=== PATIENT | male | born 1975 | race Caucasian/White ===

== ENCOUNTER 2016-05-21 13:35 | Emergency (ER) | payer OTHER ==
--- NOTE | 2016-05-21 14:28 | DIAGNOSTIC IMAGING REPORT ---
PROCEDURE: XR CHEST 2 VIEW INDICATION: CHEST PAIN TECHNIQUE: PA and lateral views. COMPARISON: None. FINDINGS: Infiltrate or atelectasis left lower lobe. There is also elevation of the left hemidiaphragm. Right lung is clear. Heart and mediastinum are normal. Thorax is normal. IMPRESSION: 1. Infiltrate or atelectasis left lower lobe.
--- NOTE | 2016-05-21 14:46 | ED ORDER SUMMARY ---
..... Patient: THAD QUINTANILLA OrderSheet [facility] VisitID: [id number] [address] [place] [address] 41y, M Registration Date/Time: 05/21/2016 ORDER SHEET Weight: 111.1 kg (stated) Allergies: Aspirin GENERAL ORDERS: Chest 2V Urgent (14:05 05/21/2016 HBivens A.R.N.P.) (14:12 EHassan R.N.) CBC w Diff Urgent (14:05 05/21/2016 HBivens A.R.N.P.) (14:12 EHassan R.N.) CMP Urgent (14:05 05/21/2016 HBivens A.R.N.P.) (14:12 EHassan R.N.) CPK Urgent (14:05 05/21/2016 HBivens A.R.N.P.) (14:12 EHassan R.N.) Troponin-I Urgent (14:05 05/21/2016 HBivens A.R.N.P.) (14:12 EHassan R.N.) MEDICATION ORDERS: IV FLUIDS: IV Saline Lock (14:05 05/21/2016 HBivens A.R.N.P.) (14:12 EHassan R.N.) Ceftriaxone IV 1 gm/50mL (NOW) (14:45 05/21/2016 HBivens A.R.N.P.) (15:00 EHassan R.N.) ORDER SHEET NOTES: [Electronically signed by Analilia Mathur R.N. (15:53 05/21/2016)] [Electronically signed by Miranda WilcoxR.N.P. (17:30 05/21/2016)] [Electronically locked/signed by Analilia Mathur R.N. (15:53 05/21/2016)]
--- NOTE | 2016-05-21 14:46 | ED ORDER SUMMARY ---
..... Patient: THAD QUINTANILLA OrderSheet [facility] VisitID: [id number] [address] [place] [address] 41y, M Registration Date/Time: 05/21/2016 ORDER SHEET Weight: 111.1 kg (stated) Allergies: Aspirin GENERAL ORDERS: Chest 2V Urgent (14:05 05/21/2016 HBivens A.R.N.P.) (14:12 EHassan R.N.) CBC w Diff Urgent (14:05 05/21/2016 HBivens A.R.N.P.) (14:12 EHassan R.N.) CMP Urgent (14:05 05/21/2016 HBivens A.R.N.P.) (14:12 EHassan R.N.) CPK Urgent (14:05 05/21/2016 HBivens A.R.N.P.) (14:12 EHassan R.N.) Troponin-I Urgent (14:05 05/21/2016 HBivens A.R.N.P.) (14:12 EHassan R.N.) MEDICATION ORDERS: IV FLUIDS: IV Saline Lock (14:05 05/21/2016 HBivens A.R.N.P.) (14:12 EHassan R.N.) Ceftriaxone IV 1 gm/50mL (NOW) (14:45 05/21/2016 HBivens A.R.N.P.) (15:00 EHassan R.N.) ORDER SHEET NOTES: [Electronically signed by Analilia Mathur R.N. (15:53 05/21/2016)] [Electronically signed by Miranda WilcoxR.N.P. (17:30 05/21/2016)] [Electronically locked/signed by Analilia Mathur R.N. (15:53 05/21/2016)]
--- NOTE | 2016-05-21 14:46 | ED NURSING NOTES ---
Clinical Report - Nurses [facility] [address] [place] [address] 05/21/2016 13:38 Patient: THAD QUINTANILLA TRIAGE Triage time 1342 PM. Acuity: LEVEL 3. Chief Complaint: CHEST PAIN and DISCOMFORT and RIGHT ARM PAIN, SHORTNESS OF BREATH and DIFFICULTY BREATHING. Alert. No acute distress. SEPSIS SCREEN: Sepsis Screen. Negative (no infection suspected/documented). HE COMA SCORE: [place] Coma Scale: 15- eyes open spontaneously (4); best verbal response- oriented x 4 (5); best motor response- obeys commands (6). --13:53 Analilia Mathur R.N. 13:41 05/21/16. BP: 144/111. HR: 85. RR: 16 (regular and unlabored). O2 saturation: 100%. Temp: 97.6 F. Pain level now: 0/10. --13:53 Analilia Mathur R.N. Weight: 111.1 kg stated. Height/Length: 71 inches Per Patient. BMI: 34.2. --13:43 Analilia Mathur R.N. Medications Lisinopril Oral 10 mg, , has not taken in a month. --13:46 Analilia Mathur R.N. Allergies Aspirin.(swelling) --13:46 Analilia Mathur R.N. Medication/allergy information source: the patient. --13:53 Analilia Mathur R.N. History Arrived by private vehicle. Historian: patient. Accompanied by family and friend. ( Pt states that as of last Thursday, pt started having chest as of last Sebastian accompanied with right arm pain that travels to lower arm as well, when experiencing CP, pt has SOB/tightness/nauseous/sweating. Last episode was last night. Here brought with correctional case manager to get evaluated). The patient has had difficulty breathing. No nausea, vomiting, fever or cough. Treatment COIL WINDER STRAP: Took Tylenol. (last night). PAST MEDICAL HX: Immunizations: up-to-date. SOCIAL HX: Light tobacco smoker (cigarette)- less than 1/2 a pack per day. Alcohol use. Patient is a recovering alcoholic. History of drug use. Is a recovering addict. (35 days). No infectious disease exposure. ABUSE ASSESSMENT: No report of abuse. SELF HARM ASSESSMENT: A self harm assessment was performed. The patient answered "no" to the question "Do you have thoughts of harming or killing yourself?" and "Have you recently had thoughts about harming or killing others?". FALL RISK ASSESSMENT: Fall risk assessment completed. No fall risk identified. NUTRITIONAL RISK ASSESSMENT: The nutritional risk assessment revealed no deficiencies. FUNCTIONAL ASSESSMENT: Functional assessment: no impairments noted. LEARNING NEEDS ASSESSMENT: The learning needs assessment revealed no barriers. SKIN INTEGRITY ASSESSMENT: Skin integrity risk assessment completed. No skin integrity risk identified. --13:53 Analilia Mathur R.N. PROBLEMS: Hypertension. Depression. Back Pain. --13:46 Analilia Mathur R.N. ADDITIONAL SURGERIES: Collar bone. --13:46 Analilia Mathur R.N. Interventions ID band on patient. --13:53 Analilia Mathur R.N. PHYSICAL ASSESSMENT Ambulatory to room. GENERAL / NEURO / PSYCH: Alert. Oriented X 4. Appears in no acute distress. HEENT: Mucous membranes are pink. RESPIRATORY: Respirations not labored. Breath sounds within normal limits. CVS: Normal sinus rhythm noted. Heart sounds within normal limits. Pulses within normal limits. Capillary refill less than 2 seconds. GI / : Abdomen soft and nontender. EXTREMITIES: No lower extremity edema. SKIN: Skin is warm and dry. Normal skin turgor. --13:55 Analilia Mathur R.N. NURSING PROGRESS NOTES 13:46 05/21/2016 Site #1 started via IV in the right antecubital space with an 20g angiocath; one attempt. Blood drawn: rainbow set. Labeled in the presence of the patient and sent to the lab. Saline lock flushed. --13:56 Analilia Mathur R.N. 13:55 05/21/16. BP: 121/88. HR: 77. RR: 15 (regular and unlabored). O2 saturation: 98% on room air. Pain level now: 10/13. --13:58 Analilia Mathur R.N. Cardiac rhythm: normal sinus rhythm. The initial plan of care for this patient has been created This plan of care was discussed with the patient. splunk consultant, pulse oximeter and NIBP monitor placed on patient. EKG time: (1354 PM). EKG was performed by a tech and shown to the ED physician. Patient ID band checked for patient name, birthdate and medical record number: patient confirmed. Blood samples drawn by nurse per protocol ; labeled in presence of the patient: rainbow set. Patient gowned. Warming measures: blanket applied. Reassurance given. ( Pt states now feeling pain initiating on the right side of neck and radiates down to right arm/ no CP). CVS: The patient reports chest pain. Two patient identifiers checked. Side rails up x 1. Bed placed in lowest position. Brakes of bed on. FALL RISK ASSESSMENT: Fall risk assessment completed. No fall risk identified. --13:58 Analilia Mathur R.N. Cardiac rhythm: normal sinus rhythm. --14:58 Analilia Mathur R.N. 14:30 05/21/16. BP: 121/78. HR: 74. RR: 16. O2 saturation: 100%. Pain level now: 08/13. --14:58 Analilia Mathur R.N. 15:00 05/21/2016 Started 1 gm of Ceftriaxone IVPB in bag #1 50 mL; at 150 mL/hr over 30 minute(s) via site #1 via IV pump. Allergies verified and confirmed 5 rights. IV patency established. IV site checked: no pain, redness, or swelling. IV flushed thoroughly pre- and post-medication administration. --15:00 Analilia Mathur R.N. 14:45 05/21/16. BP: 115/84. HR: 77. RR: 14. O2 saturation: 100%. Pain level now: 07/14. --15:02 Analilia Mathur R.N. Cardiac rhythm: normal sinus rhythm. Reassurance given. The patient is calm. Overall patient status is the same- he states feels better. HEENT: Denies headache. RESPIRATORY: Denies difficulty breathing. CVS: Denies chest pain. GI / : Denies nausea. Two patient identifiers checked. Call light placed in reach. Side rails up x 1. Bed placed in lowest position. Brakes of bed on. --15:02 Analilia Mathur R.N. 15:35 05/21/2016 Ceftriaxone IVPB Response: no adverse reaction. --15:51 Analilia Mathur R.N. 15:36 05/21/2016 Ceftriaxone IVPB Discontinued: bag #1 infused upon discharge. Total amount infused: 50 mL. IV patency established. IV site checked: no pain, redness, or swelling. IV flushed thoroughly. --15:51 Analilia Mathur R.N. DISPOSITION / DISCHARGE 15:40 05/21/2016 Site #1 removed upon discharge. Catheter intact. Manual pressure applied. --15:50 Analilia Mathur R.N. Departure time: 1550 PM. Condition at departure: improved and stable. The goals identified in the patient's plan of care were met. No learning barriers present. Discharge instructions provided and reviewed with the patient. Reviewed medication(s) side effects, precautions, dosing and course information. Prescription(s) given to the patient. Activity restrictions reviewed. Patient verbalized understanding. Written instructions provided in Danish. No diet instructions. The patient was discharged by the nurse practitioner. He was discharged home and unaccompanied at time of discharge. He left the Emergency Department ambulatory and via bus and with fare provided. Driving (bus). --15:53 Analilia Mathur R.N. 15:41 05/21/16. BP: 134/91 (regular adult cuff) taken on the left arm, via an automated monitor, while sitting. HR: 69. RR: 15. O2 saturation: 98% on room air. Temp: 97.8 F (oral). Pain level now: 07/14. --15:53 Analilia Mathur R.N. Locked/Released at 05/21/2016 15:53 by Analilia Mathur R.N.
--- NOTE | 2016-05-21 14:46 | ED CLINICAL REPORT ---
Clinical Report - Physicians/Mid Levels [facility] [address] [place] [address] 05/21/2016 13:38 Patient: THAD QUINTANILLA Time Seen: 13:59; initial patient contact, initial documentation, patient care assumed. Arrived- By private vehicle. Historian- patient. HISTORY OF PRESENT ILLNESS Chief Complaint: CHEST PAIN and DISCOMFORT. At its maximum, severity described as severe. When seen in the E.D., it was gone. Modifying factors. Not worsened by anything. Not relieved by anything. It is described as tightness and it is described as located in the right chest area and radiating to the neck and to the right arm and right shoulder. This started about 6 days ago and is now gone. It was abrupt in onset and has been intermittent. The patient has had difficulty breathing and nausea and has experienced diaphoresis. No vomiting. (when cp comes on, it gets hard to breathe and sweating). Similar symptoms previously: Frequently, as bad. ( says he suffers from anxiety and has cp with it, but his heart has never been checked out). Recent medical care: The patient was seen recently in the office. ( was at office seeing his counselor and when he mentioned he was having cp with his anxiety, he was told to come to er). REVIEW OF SYSTEMS No fever or abdominal pain. He has had a cough. All systems otherwise negative, except as recorded above. PAST HISTORY See nurses notes. PROBLEMS: Hypertension. Depression. Back Pain. --13:46 Analilia Mathur R.N. ADDITIONAL SURGERIES: Collar bone. --13:46 Analilia Mathur R.N. Alcoholism. Substance abuse. SOCIAL HISTORY Light tobacco smoker. Alcohol use. Patient is a longstanding and recovering alcoholic. History of heavy drug use. Is a recovering addict. No recent travel. Is a local resident. FAMILY HISTORY History of heart disease in first-degree relative (mother and father). ADDITIONAL NOTES The nursing notes have been reviewed with agreement regarding the chief complaint, HPI, ROS, PMH and patient medications and allergies. PHYSICAL EXAM Vital Signs: 05/21/2016 13:41 BP: 144/111. HR: 85. RR: 16. O2 saturation: 100%. Temp: 97.6 F. Pain level now: 0/10. Have been reviewed as normal and appear to be correct. Appearance: Alert. Oriented X3. No acute distress. Eyes: Pupils equal, round and reactive to light. Eyes normal inspection. Neck: Normal inspection. Neck supple. CVS: Normal heart rate and rhythm. Heart sounds normal. Pulses normal. Respiratory: No respiratory distress. Breath sounds normal. Chest nontender. Back: Normal external inspection. Skin: Skin warm and dry. Normal skin color. No rash. Normal skin turgor. Extremities: Extremities exhibit normal ROM. No lower extremity edema. Neuro: Oriented X 3. No motor deficit. No sensory deficit. LABS, X-RAYS, AND EKG EKG: EKG time: (1354). No acute process. No acute ischemia. Normal EKG. Rate: 75. Normal EKG. The study has been interpreted contemporaneously by me (and dr bey). The EKG appears to be a good tracing. Interpretation time: 1359. Chest X-ray: Normal Chest X-Ray. (IMPRESSION: 1. Infiltrate or atelectasis left lower lobe. Electronically Final signed by:Micheal Ignacio MD 05/21/2016 2:32:05 PM). The X-rays were interpreted by the radiologist and contemporaneously by me. Interpretation time: 14:43. Laboratory Tests: CBC w Diff: (ARIELLE: 05/21/2016 13:50) ( MsgRcvd 05/21/2016 14:25) Final results Test Result Flag Units (Reference) WHITE BLOOD COUNT 7.5 K/uL (4.5-11.5) RED BLOOD COUNT 4.80 M/uL (4.50-5.90) HEMOGLOBIN 14.3 gm/dL (13.5-17.5) HEMATOCRIT 42.0 % (41.0-53.0) MEAN CELL VOLUME 88 fL (80-100) MEAN CORPUSCULAR HGB 30 pg (26-34) MEAN CORPUSCULAR HGB CONC 34 g/dL (31-37) RED CELL DISTRIBUTION WIDTH 13.6 % (11.6-14.8) PLATELET COUNT 202 K/uL (150-400) NEUTROPHIL % 61.0 % (50-75) LYMPH % 28.4 % (25-40) MONO % 3.6 % (3-14) EOSINOPHIL % 6.2 H % (0-4) BASOPHIL % 0.8 % (0-2) CMP: (ARIELLE: 05/21/2016 13:50) ( MsgRcvd 05/21/2016 14:35) Final results Test Result Flag Units (Reference) GLUCOSE 175 H mg/dL (70-110) BUN 8 mg/dL (7-18) CREATININE 1.0 mg/dL (0.6-1.3) Estimated GFR >60 mL/min Estimated GFR- >60 mL/min Note: Persistent reduction over 3 months in eGFR<60 mL/min/1.73 m2 defines CKD. Patients with eGFR values>=60 mL/min/1.73 m2 may also have CKD if evidence ofpersistent proteinuria. Additional information may be foundat www.kidney.org. SODIUM 142 mmol/L (136-145) POTASSIUM 3.8 mmol/L (3.5-5.1) CHLORIDE 105 mmol/L (98-107) CARBON DIOXIDE 30 mmol/L (21-32) CALCIUM 9.0 mg/dL (8.5-10.1) TOTAL PROTEIN 7.1 g/dL (6.4-8.2) ALBUMIN 3.7 g/dL (3.3-5.0) BILIRUBIN, TOTAL 0.3 mg/dL (0.0-1.0) ALKALINE PHOSPHATASE 95 U/L (46-116) AST (SGOT) 26 U/L (15-37) ALT (SGPT) 42 U/L (12-78) CPK 148 U/L (24-260) TROPONIN I <0.05 ng/mL (0.00-1.5) TROPONIN REFERENCE RANGE:<0.1 NEGATIVE0.1-1.5 INDETERMINANT>1.5 POSITIVE . PROGRESS AND PROCEDURES Patient counseled in person regarding the patient's stable condition, test results and diagnosis. 14:43. Differential Diagnosis: I considered muscle strain, costochondritis, pleurisy, myocardial infarction, intermediate coronary syndrome, unstable angina, angina, aortic dissection, mitral valve prolapse, pericarditis, pulmonary embolism, pneumonia, pneumothorax, gastroesophageal reflux disease, esophagitis and esophageal spasm as a possible cause of chest pain in this patient. This is a partial list of diagnoses considered. Disposition: Discharged home in good and improved condition (14:46). Condition: good and stable. CLINICAL IMPRESSION Bronchopneumonia. Vital signs recorded and reviewed; empiric antibiotics given in the ED and prescribed. No hypoxemia, respiratory failure or sepsis. INSTRUCTIONS Warnings: GENERAL WARNINGS: Return or contact your physician immediately if your condition worsens or changes unexpectedly, if not improving as expected, or if other problems arise. SPECIFICALLY, return if you develop chest, neck, jaw, shoulder, arm, or back pain, difficulty breathing, a fluttering sensation in your chest, lightheadedness, fainting, excessive fatigue, or sudden sweating. Prescription Medications: Naproxen 500 mg tablets: take 1 orally every 12 hours as needed for pain. Dispense twenty (20). No refills. Zithromax 250 mg tablets: take 2 orally today, followed by 1 daily for the next 4 days. No refills. Substitution is permissible. Follow-up: Follow up with your doctor in about three days as needed. Call for an appointment. Summary of care provided to patient. Understanding of the discharge instructions verbalized by patient. (Electronically signed by Miranda Wilcox A.R.N.P. 05/21/2016 17:30)
--- NOTE | 2016-05-21 17:30 | ED DISCHARGE INSTRUCTIONS ---
Patient: THAD QUINTANILLA General Instructions [facility] VisitID: [id number] [place] [address] 41y, M Registration Date/Time: 05/21/2016 Bronchopneumonia. Vital signs recorded and reviewed; empiric antibiotics given in the ED and prescribed. No hypoxemia, respiratory failure or sepsis. INSTRUCTIONS Warnings: GENERAL WARNINGS: Return or contact your physician immediately if your condition worsens or changes unexpectedly, if not improving as expected, or if other problems arise. SPECIFICALLY, return if you develop chest, neck, jaw, shoulder, arm, or back pain, difficulty breathing, a fluttering sensation in your chest, lightheadedness, fainting, excessive fatigue, or sudden sweating. Prescription Medications: Naproxen 500 mg tablets: take 1 orally every 12 hours as needed for pain. Dispense twenty (20). No refills. Zithromax 250 mg tablets: take 2 orally today, followed by 1 daily for the next 4 days. No refills. Substitution is permissible. Follow-up: Follow up with your doctor in about three days as needed. Call for an appointment. Summary of care provided to patient. Understanding of the discharge instructions verbalized by patient. ADDITIONAL INFORMATION Pneumonia (Adult) Pneumonia is an infection deep within the lung, in the small air sacs (alveoli). It may be due to a virus or bacteria and is usually treated with an antibiotic. Severe cases require treatment in the hospital. Milder cases can be treated at home. Symptoms usually start to improve during the first2 days of treatment. Home Care: Rest at home for the first 23 days or until you feel stronger. When resuming activity, dont let yourself become overly tired. Avoid exposure to cigarette smoke (yours or others). You may use acetaminophen (Tylenol) or ibuprofen (Motrin, Advil) to control fever or pain, unless another medicine was prescribed. [NOTE: If you have chronic liver or kidney disease or ever had a stomach ulcer or GI bleeding, talk with your doctor before using these medicines.] (Aspirin should never be used in anyone under 18 years of age who is ill with a fever. It may cause severe liver damage.) Your appetite may be poor so a light diet is fine. Keep well hydrated by drinking 68 glasses of fluids per day (water, sport drinks such as Gatorade, sodas without caffeine, juices, tea, soup, etc.). This will help loosen secretions in the lung, making it easier for you to cough up the phlegm (sputum). If you also have heart or kidney disease, check with your doctor before you drink extra amounts of fluids. Finish all antibiotic medicine prescribed, even if you are feeling better after a few days. Follow Up with your doctor in the next 23 days (or as advised) to be sure you are responding properly to the medicine. [NOTE: If you are age 65 or older, or if you have chronic lung disease (asthma, emphysema or COPD), we recommendthe pneumococcal vaccination and a yearlyinfluenzavaccination(flu-shot) every . Ask your doctor about this.] Get Prompt Medical Attention if any of the following occur: Not getting better within the first 48 hours of treatment Increasing shortness of breath or rapid breathing (over 25 breaths/minute) Coughing up blood or increasing chest pain with breathing Fever of 100.4F (38C) oral or higher, not better with fever medication Increasing weakness, dizziness or fainting Increasing thirst or dry mouth Sinus pain, headache or a stiff neck Chest pain not caused by coughing Naproxen Sodium Oral tablet What is this medicine? NAPROXEN (na PROX en) is a non-steroidal anti-inflammatory drug (NSAID). It is used to reduce swelling and to treat pain. This medicine may be used for dental pain, headache, or painful monthly periods. It is also used for painful joint and muscular problems such as arthritis, tendinitis, bursitis, and gout. How should I use this medicine? Take this medicine by mouth with a glass of water. Follow the directions on the prescription label. Take it with food if your stomach gets upset. Try to not lie down for at least 10 minutes after you take it. Take your medicine at regular intervals. Do not take your medicine more often than directed. Long-term, continuous use may increase the risk of heart attack or stroke. A special MedGuide will be given to you by the pharmacist with each prescription and refill. Be sure to read this information carefully each time. Talk to your hand filer balance wheel regarding the use of this medicine in children. Special care may be needed. What side effects may I notice from receiving this medicine? Side effects that you should report to your doctor or health professional healthcare representative as soon as possible: black or bloody stools, blood in the urine or vomit blurred vision chest pain difficulty breathing or wheezing nausea or vomiting severe stomach pain skin rash, skin redness, blistering or peeling skin, hives, or itching slurred speech or weakness on one side of the body swelling of eyelids, throat, lips unexplained weight gain or swelling unusually weak or tired yellowing of eyes or skin Side effects that usually do not require medical attention (report to your doctor or health professional healthcare representative if they continue or are bothersome): constipation headache heartburn What may interact with this medicine? alcohol aspirin cidofovir diuretics lithium methotrexate other drugs for inflammation like ketorolac or prednisone pemetrexed probenecid warfarin What if I miss a dose? If you miss a dose, take it as soon as you can. If it is almost time for your next dose, take only that dose. Do not take double or extra doses. Where should I keep my medicine? Keep out of the reach of children. Store at room temperature between 15 and 30 degrees C (59 and 86 degrees F). Keep container tightly closed. Throw away any unused medicine after the expiration date. What should I tell my health care provider before I take this medicine? They need to know if you have any of these conditions: asthma cigarette smoker drink more than 3 alcohol containing drinks a day heart disease or circulation problems such as heart failure or leg edema (fluid retention) high blood pressure kidney disease liver disease stomach bleeding or ulcers an unusual or allergic reaction to naproxen, aspirin, other NSAIDs, other medicines, foods, dyes, or preservatives or trying to get breast-feeding What should I watch for while using this medicine? Tell your doctor or health professional healthcare representative if your pain does not get better. Talk to your doctor before taking another medicine for pain. Do not treat yourself. This medicine does not prevent heart attack or stroke. In fact, this medicine may increase the chance of a heart attack or stroke. The chance may increase with longer use of this medicine and in people who have heart disease. If you take aspirin to prevent heart attack or stroke, talk with your doctor or health professional healthcare representative. Do not take other medicines that contain aspirin, ibuprofen, or naproxen with this medicine. Side effects such as stomach upset, nausea, or ulcers may be more likely to occur. Many medicines available without a prescription should not be taken with this medicine. This medicine can cause ulcers and bleeding in the stomach and intestines at any time during treatment. Do not smoke cigarettes or drink alcohol. These increase irritation to your stomach and can make it more susceptible to damage from this medicine. Ulcers and bleeding can happen without warning symptoms and can cause . You may get drowsy or dizzy. Do not drive, use machinery, or do anything that needs mental alertness until you know how this medicine affects you. Do not stand or sit up quickly, especially if you are an older patient. This reduces the risk of dizzy or fainting spells. This medicine can cause you to bleed more easily. Try to avoid damage to your teeth and gums when you brush or floss your teeth. Azithromycin Oral tablet What is this medicine? AZITHROMYCIN (az ith wendi PHIE sin) is a macrolide antibiotic. It is used to treat or prevent certain kinds of bacterial infections. It will not work for colds, flu, or other viral infections. How should I use this medicine? Take this medicine by mouth with a full glass of water. Follow the directions on the prescription label. The tablets can be taken with food or on an empty stomach. If the medicine upsets your stomach, take it with food. Take your medicine at regular intervals. Do not take your medicine more often than directed. Take all of your medicine as directed even if you think your are better. Do not skip doses or stop your medicine early. Talk to your hand filer balance wheel regarding the use of this medicine in children. Special care may be needed. What side effects may I notice from receiving this medicine? Side effects that you should report to your doctor or health professional healthcare representative as soon as possible: allergic reactions like skin rash, itching or hives, swelling of the face, lips, or tongue confusion, nightmares or hallucinations dark urine difficulty breathing hearing loss irregular heartbeat or chest pain pain or difficulty passing urine redness, blistering, peeling or loosening of the skin, including inside the mouth white patches or sores in the mouth yellowing of the eyes or skin Side effects that usually do not require medical attention (report to your doctor or health professional healthcare representative if they continue or are bothersome): diarrhea dizziness, drowsiness headache stomach upset or vomiting tooth discoloration vaginal irritation What may interact with this medicine? Do not take this medicine with any of the following medications: lincomycin This medicine may also interact with the following medications: amiodarone antacids cyclosporine digoxin magnesium nelfinavir phenytoin warfarin What if I miss a dose? If you miss a dose, take it as soon as you can. If it is almost time for your next dose, take only that dose. Do not take double or extra doses. Where should I keep my medicine? Keep out of the reach of children. Store at room temperature between 15 and 30 degrees C (59 and 86 degrees F). Throw away any unused medicine after the expiration date. What should I tell my health care provider before I take this medicine? They need to know if you have any of these conditions: kidney disease liver disease irregular heartbeat or heart disease an unusual or allergic reaction to azithromycin, erythromycin, other macrolide antibiotics, foods, dyes, or preservatives or trying to get breast-feeding What should I watch for while using this medicine? Tell your doctor or health professional healthcare representative if your symptoms do not improve. Do not treat diarrhea with over the counter products. Contact your doctor if you have diarrhea that lasts more than 2 days or if it is severe and watery. This medicine can make you more sensitive to the sun. Keep out of the sun. If you cannot avoid being in the sun, wear protective clothing and use sunscreen. Do not use sun lamps or tanning beds/booths. You have been given the following additional information: Pneumonia (Adult) Naproxen Sodium Oral tablet Azithromycin Oral tablet (Electronically signed by Miranda Wilcox A.R.N.P. 05/21/2016 17:30)
--- NOTE | 2016-05-21 17:31 | ED MAR SUMMARY ---
..... Medication Administration Record Merged With [facility] [address] [place] [address] Patient: THAD QUINTANILLA Visit ID: [id number] 41y, M Weight: 111.1 kg Height/Length: 71 in BMI: 34.2 ALLERGIES: Aspirin Start 15:00 05/21/2016 Analilia Mathur RAlbaroNAlbaro, Stop 15:36 05/21/2016 Analilia Mathur R.N. Medication Administered: CEFTRIAXONE [IVPB], Dose: 1 gm IVPB over 30 minute(s), Rate: 150 mL/hr, Dispensed: 50 mL bag, Site: #1 right AC. Medication Ordered: Ceftriaxone IV 1 gm/50mL (NOW).
--- NOTE | 2016-05-21 17:31 | ED MED RECONCILIATION SUMMARY ---
Patient: THAD QUINTANILLA Medication Reconciliation Report [facility] VisitID: [id number] [address] [place] [address] 41y, M Registration Date/Time: 05/21/2016 Weight: 111.1 kg Height/Length: 71 in. BMI: 34.2 ALLERGIES: Aspirin The patient's Home Medications are listed below: THE FOLLOWING MEDICATIONS NEED TO BE RECONCILED: Lisinopril Oral 10 mg, has not taken in a month The source(s) of the original Home Medication information: patient The following Medications were given to the patient in the Emergency Department: Ceftriaxone [IVPB] IVPB bolus 0, then 1 gm 150 mL/hr, administered: 05/21/2016 3:00:00 PM The following Medications were prescribed to the patient: Naproxen 500 mg tablets: take 1 orally every 12 hours as needed for pain. Dispense twenty (20). No refills. -- Miranda Wilcox A.RAlbaroNAlbaroP. Zithromax 250 mg tablets: take 2 orally today, followed by 1 daily for the next 4 days. No refills. Substitution is permissible. -- Miranda Wilcox A.R.N.P.
--- NOTE | 2016-05-21 17:31 | ED MED RECONCILIATION SUMMARY ---
Patient: THAD QUINTANILLA Medication Reconciliation Report [facility] VisitID: [id number] [address] [place] [address] 41y, M Registration Date/Time: 05/21/2016 Weight: 111.1 kg Height/Length: 71 in. BMI: 34.2 ALLERGIES: Aspirin The patient's Home Medications are listed below: THE FOLLOWING MEDICATIONS NEED TO BE RECONCILED: Lisinopril Oral 10 mg, has not taken in a month The source(s) of the original Home Medication information: patient The following Medications were given to the patient in the Emergency Department: Ceftriaxone [IVPB] IVPB bolus 0, then 1 gm 150 mL/hr, administered: 05/21/2016 3:00:00 PM The following Medications were prescribed to the patient: Naproxen 500 mg tablets: take 1 orally every 12 hours as needed for pain. Dispense twenty (20). No refills. -- Miranda Wilcox A.RAlbaroNAlbaroP. Zithromax 250 mg tablets: take 2 orally today, followed by 1 daily for the next 4 days. No refills. Substitution is permissible. -- Miranda Wilcox A.R.N.P.
--- NOTE | 2016-05-21 17:31 | ED MAR SUMMARY ---
..... Medication Administration Record [facility] [address] [place] [address] Patient: THAD QUINTANILLA Visit ID: [id number] 41y, M Weight: 111.1 kg Height/Length: 71 in BMI: 34.2 ALLERGIES: Aspirin Start 15:00 05/21/2016 Analilia Mathur RAlbaroNAlbaro, Stop 15:36 05/21/2016 Analilia Mathur R.N. Medication Administered: CEFTRIAXONE [IVPB], Dose: 1 gm IVPB over 30 minute(s), Rate: 150 mL/hr, Dispensed: 50 mL bag, Site: #1 right AC. Medication Ordered: Ceftriaxone IV 1 gm/50mL (NOW).
== END 2016-05-21 15:48 | disposition home or self-care (01) ==
LOC: ED SRH 13:35
DX: J18.0 Bronchopneumonia, unspecified organism (principal); I10 Essential (primary) hypertension; F17.210 Nicotine dependence, cigarettes, uncomplicated; F10.10 Alcohol abuse, uncomplicated; Z88.6 Allergy status to analgesic agent
CPT/HCPCS: 90100; 90616; 92610; 95059